=== PATIENT | female | born 1990 | race Caucasian/White ===

== ENCOUNTER 2022-11-13 06:57 | Emergency (ER) | payer OTHER, SELFPAY ==
[2022-11-13 07:00] VITALS: BP 119/75; PULSE 69; RESP 18; TEMP 36.8; O2SAT 99; BMI 34.8
--- NOTE | 2022-11-13 07:04 | XR_ITS ---
The [address] [address] Patient Name: AMAYA SCHAEFFER MRN: [id number] date: 1990 Sex: F Assigned Patient Location: ER Current Patient Location: ER Accession/Order Number: [id number] Exam Date: 11/13/2022 07:20 Report Date: 11/13/2022 07:52 At the request of: JACINTO GEE Procedure: XR wrist LT min 3V PROCEDURE: XR wrist LT min 3V HISTORY: injury ; acute ulnar side wrist pain after falling COMPARISON: None. FINDINGS: BONES:No fracture, acute abnormality, or significant arthropathy. SOFT TISSUES:No visible soft tissue swelling. EFFUSION:None visible. OTHER: Negative. XR/XR wrist LT min 3V IMPRESSION: 1. No acute bone abnormality. Electronically authenticated by: BARNEY LOUIS Date: 11/13/2022 07:52
[2022-11-13] MEDS: IBUPROFEN 400 MG TABLET PO (07:30)
--- NOTE | 2022-11-13 07:34 | ED.UPPEXIN1 ---
HPI - Extremity Injury (Upper) General Chief Complaint: Extremity Injury, Upper Stated Complaint: LT WRIST INJURY Time Seen by Provider: 11/13/22 07:17 Source: patient Limitations: no limitations History of Present Illness HPI narrative: 32-year-old female presents for left wrist pain. Yesterday she was doing yard work and she tripped and she went forward and her hand went up against a post on a railing at her home. Hit the left side of her face, forehead area, but that doesn't hurt now. She points to the ulnar aspect of her left wrist and it's moderate and worse when she moves. Related Data Allergies Allergy/AdvReac Type Severity Reaction Status Date / Time pcn AdvReac Intermediate Uncoded 11/13/22 07:00 Review of Systems ROS Narrative A ten point review of systems is negative except as noted above. PFSH PFSH Social History Smoking status: Current every day smoker Exam Narrative Exam Narrative: Nurses note and vital signs reviewed and patient is not hypoxic. General: The patient appears well and in no apparent distress. Patient is resting comfortably on cart. Skin: Warm, dry, no pallor noted. There is no rash noted. Head: Normocephalic, atraumatic Eye: Normal conjunctiva, no drainage Ears, Nose, Mouth, and Throat: oral mucosa is moist. Nares patent. Cardiovascular: Regular Rate and Rhythm Respiratory: Patient is in no distress, no accessory muscle use, lungs are clear to auscultation, no wheezing, rales or rhonchi Back: non-tender GI: nontender Musculoskeletal: the left wrist is examined. There is no break in the skin. There is no obvious deformity or swelling. Fingers have full range of motion Neurological: A&O, normal speech Psychiatric: Cooperative Constitutional Vital Signs, click to edit/add: Last Vital Signs Temp 98.2 F 11/13/22 07:00 Pulse 69 11/13/22 07:00 Resp 18 11/13/22 07:00 BP 119/75 11/13/22 07:00 Pulse Ox 99 11/13/22 07:00 Course Vital Signs Vital signs: Vital Signs Temperature 98.2 F 11/13/22 07:00 Pulse Rate 69 11/13/22 07:00 Respiratory Rate 18 11/13/22 07:00 Blood Pressure 119/75 11/13/22 07:00 Pulse Oximetry 99 11/13/22 07:00 Temperature 98.2 F 11/13/22 07:00 Pulse Rate 69 11/13/22 07:00 Respiratory Rate 18 11/13/22 07:00 Blood Pressure 119/75 11/13/22 07:00 Pulse Oximetry 99 11/13/22 07:00 MDM - Extremity Injury (Upper) MDM Narrative Medical decision making narrative: Wrist x-rays per radiologist showed no acute findings. She already has a splint that she'll utilize and she'll use ice and [id number] Motrin. Treatment diagnosis and follow-up were discussed with the patient. Differential Diagnosis Differential diagnosis: Likely sprain and strain of wrist, fracture of wrist and Colles' fracture Discharge Plan Discharge Chief Complaint: Extremity Injury, Upper Clinical Impression: Left wrist sprain Patient Disposition: Home, Self-Care Time of Disposition Decision: 08:01 Condition: Good Mode of Transportation: Private Vehicle Instructions: Wrist Sprain (ED) Stand Alone Forms: Portal Instructions Referrals: LUCITA LOMBARDO [Primary Care Provider] - 1 week
[2022-11-13 08:05] VITALS: O2SAT 98
== END 2022-11-13 08:06 | disposition home or self-care (01) ==
PROVIDERS: Emergency Provider Emergency Medicine; PCP Family Medicine
DX: S63.502A Unspecified sprain of left wrist, initial encounter (principal); W01.198A Fall on same level from slipping, tripping and stumbling with subsequent striking against other object, initial encounter; F17.210 Nicotine dependence, cigarettes, uncomplicated
CPT/HCPCS: 73110; 99283